=== PATIENT | female | born 1970 | race Caucasian/White ===

== ENCOUNTER 2016-06-13 12:25 | Emergency (ER) | payer SELFPAY ==
[~2016-06-13] VITALS: Ht 154.9 cm; Wt 43.1 kg
== END 2016-06-13 13:30 | disposition short-term general hospital (02) ==
LOC: ER 12:25
DX: S71.152A Open bite, left thigh, initial encounter (principal); Z23 Encounter for immunization; F17.210 Nicotine dependence, cigarettes, uncomplicated; W54.0XXA Bitten by dog, initial encounter